=== PATIENT | male | born 1945 | race Caucasian/White ===

== ENCOUNTER 2023-09-07 10:52 | Day surgery (SDC) | payer OTHER ==
[2023-09-06 08:59] LABS: Potassium 3.9 mEq/L (3.5-5.1)
--- NOTE | 2023-09-06 12:27 | EKG ---
Test Date: 2023-09-06 Test Time: 08:19:45 [employer]: GABINO MEASUREMENT RESULTS: Intervals: Rate: 115 VA: QRSD: 140 QT: 358 QTc: 495 [place]: P: VA: QRS: -68 T: 48 INTERPRETIVE STATEMENTS: Atrial fibrillation with rapid ventricular response Right bundle branch block Left anterior fascicular block Bifascicular block Abnormal ECG Compared to ECG 08/23/2017 11:11:30 Right bundle-branch block now present Left anterior fascicular block now present Bifascicular block now present Atrial premature complex(es) no longer present Electronically Signed On 09-06-23 12:26:30 CDT by Kayode Hearn
[2023-09-07] MEDS ORDERED: NA CHLORIDE 0.9% 1,000 ML ONE (11:20)
[2023-09-07] MEDS: CEFAZOLIN SODIUM 1 GM/VIAL ONE ×2 (13:45→13:51)
[2023-09-07] MEDS ORDERED: LIDOCAINE 2% MPF 5 ML VIAL ONE (13:54)
[2023-09-07] MEDS ORDERED: FENTANYL CITR 100 MCG/2 ML ONE (13:54)
[2023-09-07] MEDS ORDERED: propofoL 200 MG/20 ML VIAL IV ONE (13:54)
[2023-09-07] MEDS ORDERED: MIDAZOLAM HCL 2 MG/2 ML INJ ONE (13:54)
[2023-09-07] MEDS: BUPIVACAINE 0.25% PF 10 ML VIAL ONE ×2 (14:07→14:19)
[2023-09-07] MEDS ORDERED: ONDANSETRON 4 MG/2 ML VIAL ONE (14:21)
--- NOTE | 2023-09-07 14:31 | P.OP ---
Preoperative diagnosis: Posterior Neck Skin Cancer Postoperative diagnosis: Posterior Neck Skin Cancer Primary procedure: Wide Local Excision of Posterior Neck Skin Cancer Anesthesia: GETA + Local Estimated blood loss: <5cc Specimen: Skin Ellipse Findings: ~ 0.5cm skin cancer Complications: None Transferred to: Recovery Room Condition: Good
[2023-09-07 16:31] VITALS: BP 122/70; TEMP 97; O2SAT 97
--- NOTE | 2023-09-08 00:47 | OP ---
Date of Procedure: 09/07/2023 Surgeon: Abhay Hendrickson MD, Preoperative Diagnosis: Skin cancer, biopsy proven. Postoperative Diagnosis: Skin cancer, biopsy proven. Procedure: Wide local excision of posterior neck skin cancer. Anesthesia: General endotracheal plus local with 0.25% Marcaine as above, 5 cc. Specimen: Skin ellipse. Findings: 0.5 cm skin cancer. Complication: None. Disposition: Patient transferred to recovery room in good condition. Procedure In Detail: After informed consent was obtained, patient was brought to the operating room, prepped and draped in the usual sterile fashion after adequate anesthesia was achieved. A demarcate d area of posterior neck circumferentially around with a 1 cm margin through an ellipse of skin down around the area of biopsy-proven squamous cell skin cancer. After this was marked appropriately, a 1 5 blade was used to dissect down circumferentially around to close the ellipse of skin. Electrocaute ry was used to dissect down the subcutaneous tissues. I then placed marking sutures, short superior, long with right lateral margin. I then removed the ellipse of skin all the way down to the adipose tissue sent for pathologic examination. The area was copiously irrigated and around the area with el ectrocautery to allow for appropriate closure in a tension-free manner. At this point, after the are a appropriately achieved hemostasis, I then closed the wound with interrupted 2-0 nylon sutures in an interrupted fashion. A sterile dressing was placed over top. The patient tolerated the procedure w ell without evidence of complication and transferred to PACU in good condition. All counts were correct at the end of the case. RASHMI/RADHA Voice ID: [id number] Report ID: [id number]
== END 2023-09-07 16:20 | disposition home or self-care (01) ==
LOC: OR 10:52
PROVIDERS: ATTEND Surgery
PROC: 0HB4XZZ Excision of Neck Skin, External Approach (ICD-10-PCS; principal; 2023-09-07 13:30)
DX: D04.4 Carcinoma in situ of skin of scalp and neck (principal); I10 Essential (primary) hypertension; E78.00 Pure hypercholesterolemia, unspecified; E11.9 Type 2 diabetes mellitus without complications; I48.20 Chronic atrial fibrillation, unspecified; Z79.4 Long term (current) use of insulin
CPT/HCPCS: 93005; 80048; 36415; 82947 ×2; 88305; 11621; J2704; J2001; J3010; J2405; J7030; J0690; J2250

== ENCOUNTER 2024-02-26 21:44 | Emergency (ER) | payer OTHER ==
[2024-02-26] MEDS ORDERED: TDAP (DIPHTH,PERTUSS(ACELL),TET VAC) 0.5 ML VIAL IMVAC ONE (22:20)
[2024-02-26] MEDS ORDERED: LIDOCAINE 1% 20 ML MDV ONE (22:20)
--- NOTE | 2024-02-26 23:49 | ER ---
Nurse's Notes [facility] Name: Rodríguez Burleson Age: 78 yrs Sex: Male : 1945 Arrival Date: 02/26/2024 Time: 21:44 Bed 7 Private MD: Diagnosis: Unspecified injury of head, initial encounter;, Acute forehead laceration, complicated forehead laceration Presentation: 02/25 21:57 Chief complaint: Patient states: mechanical fall while walking dog. laceration to lg3 forehead. bleeding controlled. Care prior to arrival: IV initiated. 18 GA, in the right forearm. Mechanism of Injury: Fall from standing position. approximately 5 feet. Trauma event details: Injury occurred in the [facility], Injury occurred: on a street or highway. Injury occurred: February 26, 2024 Injury occurred at: 21:00. 21:57 Acuity: [place] 3 lg3 21:57 Method Of Arrival: EMS: [facility] lg3 22:12 Coronavirus screen: Client denies travel out of the [place] in the last 14 days. At this lg3 time, the client does not indicate any symptoms associated with coronavirus-19. Ebola Screen: No symptoms or risks identified at this time. Initial Sepsis Screen: Does the patient meet any 2 criteria? No. Patient's initial sepsis screen is negative. Does the patient have a suspected source of infection? No. Patient's initial sepsis screen is negative. Risk Assessment: Do you want to hurt yourself or someone else? Patient reports no desire to harm self or others. Onset of symptoms was February 26, 2024. Trauma Activation: Alert Physician: ED Physician; Name: Baljit; Notified At: ; Arrived At: Physician: General Surgeon; Name: ; Notified At: ; Arrived At: Physician: Radiology; Name: ; Notified At: ; Arrived At: Physician: Respiratory; Name: ; Notified At: ; Arrived At: Physician: Lab; Name: ; Notified At: ; Arrived At: Historical: - Allergies: 22:12 No Known Allergies; lg3 - Home Meds: 22:12 unknown blood thinner [Active]; lg3 - PMHx: 22:12 Hypertensive disorder; Diabetes mellitus; lg3 - PSHx: 22:12 left knee replacement; lg3 - Immunization history: Last tetanus immunization: - up to date. - Infectious Disease History:: Denies. - Social history:: Smoking status: Patient denies any tobacco usage or history of. Patient/guardian denies using alcohol, street drugs. - Family history:: not pertinent. Screenin:57 Abuse screen: Denies threats or abuse. Denies injuries from another. Nutritional lg3 screening: No deficits noted. Tuberculosis screening: No symptoms or risk factors identified. Fall risk At risk due to prior history of falls. 22:14 [facility] ED Fall Risk Assessment (Adult) History of falling in the last 3 months, lg3 including since admission Yes- single mechanical fall (1 pt) Confusion or Disorientation No (0 pts) Intoxicated or Sedated No (0 pts) Impaired Gait No (0 pts) Mobility Assist Device Used No (0 pt) Altered Elimination No (0 pt) Score/Fall Risk Level 0 - 2 = Low Risk Oriented to surroundings, Maintained a safe environment, Educated pt \T\ family on fall prevention, incl call for assistance when getting out of bed, Assessed \T\ reinforced patient's understanding of fall precautions, Provided non-skid footwear. Primary Survey: 21:57 NO uncontrolled hemorrhage observed. A: The client is awake and alert. The airway is lg3 patent. The client is alert. Breathing/Chest: Spontaneous respiratory effort, equal unlabored respirations, breath sounds clear bilaterally, regular pattern, symmetrical chest rise and fall. Circulation: No external hemorrhage present. Regular and strong central pulse, skin warm/dry/normal color. Disability Pupils are equal, round, reactive to light and accommodation. Client is alert. Client responds to verbal stimuli. Exposure/Environment: All clothing and personal items were removed. Forensic evidence collection is not deemed to be indicated at this time. Items placed in patient belonging bag. 22:13 Reassessment Breathing: Spontaneous respiratory effort, equal unlabored respirations, lg3 breath sounds clear bilaterally, regular pattern with symmetrical chest rise and fall. Circulation: No external hemorrhage noted. Regular and strong central pulse, skin warm/dry/normal color. Disability: Pupils Pupils are equal, round, reactive to light and accomodation. Alert Verbal stimuli. Assessment: 21:57 General: Appears in no apparent distress. comfortable, Behavior is calm, cooperative. lg3 Pain: Complains of pain in forehead Pain does not radiate. Pain currently is 4 out of 10 on a pain scale. Neuro: No deficits noted. [place] Agitation-Sedation Scale (RASS): 0 - Alert and Calm Level of Consciousness is awake, alert, obeys commands, Oriented to person, place, time, situation. EENT: No deficits noted. No signs and/or symptoms were reported regarding the EENT system. Cardiovascular: No deficits noted. Denies chest pain, shortness of breath, Heart tones S1 S2 present Capillary refill < 3 seconds Clubbing of nail beds is absent JVD is absent Patient's skin is warm and dry. Respiratory: No deficits noted. Airway is patent Respiratory effort is even, unlabored, Respiratory pattern is regular, symmetrical. GI: No deficits noted. No signs and/or symptoms were reported involving the gastrointestinal system. Abdomen is round non-distended. : No deficits noted. No signs and/or symptoms were reported regarding the genitourinary system. Derm: Skin is intact, is thin, Skin is dry, Skin is normal, Skin temperature is warm Wound noted forehead. Musculoskeletal: No deficits noted. No signs and/or symptoms reported regarding the musculoskeletal system. Circulation, motion, and sensation intact. Range of motion: intact in all extremities. Vital Signs: 21:57 BP 155 / 84; Pulse 86; Resp 17 S; Temp 98.1(O); Pulse Ox 99% on R/A; Weight 79.38 kg lg3 (R); Height 6 ft. 0 in. (R); Pain 4/10; 23:58 BP 185 / 99; Pulse 88; Resp 16 S; Temp 97.8(TE); Pulse Ox 100% on R/A; lg3 21:57 Body Mass Index 23.73 (79.38 kg, 182.88 cm) lg3 21:57 Pain Scale: Adult lg3 [place] Coma Score: 21:57 Eye Response: spontaneous(4). Motor Response: obeys commands(6). Verbal Response: lg3 oriented(5). Total: 15. 23:44 Eye Response: spontaneous(4). Motor Response: obeys commands(6). Verbal Response: sp4 oriented(5). Total: 15. Trauma Score (Adult): 21:57 Eye Response: spontaneous(1); Verbal Response: oriented(1); Motor Response: obeys lg3 commands(2); Systolic BP: > 89 mm Hg(4); Respiratory Rate: 10 to 29 per min(4); [place] Score: 15; Trauma Score: 12 ED Course: 21:45 Patient arrived in ED. jj6 21:51 Jed Smiley MD is Attending Physician. sp4 21:57 Mony Grullon RN is Primary Nurse. lg3 21:57 Patient has correct armband on for positive identification. Placed in gown. Bed in low lg3 position. Call light in reach. Side rails up X 1. Patient maintains SpO2 saturation greater than 95% on room air. Family accompanied patient. Client placed on continuous cardiac and pulse oximetry monitoring. NIBP monitoring applied. court recording monitor on. 21:57 Maintain EMS IV. Dressing intact. Good blood return noted. Site clean \T\ dry. Gauge \T\ lg 3 site: 15 RFA. Patient maintains SpO2 saturation greater than 95% on room air. Thermoregulation: warm blanket given to patient. 21:59 Triage completed. lg3 22:12 Arm band placed on right wrist. lg3 22:52 CT Head Brain wo Cont In Process Unspecified. EDMS 02/26 00:31 Assist provider with laceration repair on forehead using sutures. Set up tray. lg3 Performed by Jed Smiley MD Dressed with Kerlix, Neosporin, Patient tolerated well. IV discontinued, intact, bleeding controlled, No redness/swelling at site. Pressure dressing applied. Administered Medications: 02/25 22:29 Drug: Boostrix Tdap IM 0.5 ml IM once; as a single dose Route: IM; Site: right deltoid; lg3 04 00:34 Follow up: Response: (VIS) Vaccine information sheet provided today. Questions and/or lg3 concerns addressed. VIS edition date: Jul 01, 2021.; No adverse reaction 00:23 Drug: Acetaminophen PO 1000 mg PO once Route: PO; vc1 00:33 Follow up: Response: No adverse reaction lg3 00:23 Drug: Ibuprofen PO 600 mg PO once Route: PO; vc1 00:33 Follow up: Response: No adverse reaction lg3 00:23 Drug: cloNIDine PO 0.1 mg PO once Route: PO; vc1 00:33 Follow up: Response: No adverse reaction lg3 00:23 Drug: Zwgbwydx-Iycvjqyjfr-Ppehxtrxj Topical Ointment 1 application Topical once Route: vc1 Topical; Site: affected area; 00:33 Follow up: Response: No adverse reaction lg3 00:34 Drug: Lidocaine Infiltration (1 %) 20 ml 20 ml Infiltration once; to bedside Volume: 20 lg3 ml; Route: Infiltration; 00:34 Follow up: Response: No adverse reaction lg3 Medication: 02/25 22:30 Vaccine Information Statement (VIS) provided today. Questions and/or concerns lg3 addressed. VIS edition date: July 01, 2022. Point of Care Testing: Blood Glucose: 21:57 Blood Glucose: 248 mg/dL; lg3 Ranges: Outcome: 23:48 Discharge ordered by . sp4 04 00:31 Discharged to home via wheelchair, with family, lg3 Condition: stable Discharge instructions given to patient, Instructed on discharge instructions, follow up and referral plans. wound care, Demonstrated understanding of instructions, follow-up care, wound care, 00:33 Patient's length of stay was not longer than 2 hours. lg3 00:34 Patient left the ED. lg3 Signatures: Dispatcher [employer] EDMS Mony Grullon, RN RN lg3 Lexii Lubinj6 Rebeca Damon RN RN vc1 Jed Smiley MD MD sp4 Elvin Calzada Corrections: (The following items were deleted from the chart) 02/25 22:13 22:12 Home Meds: Unable to obtain; lg3 lg3 02/26 00:05 04 23:58 BP 199 / 117 Sitting Auto L Arm Regular; ty ty 02/26 00:31 04 23:58 BP 185 / 99 Sitting Auto L Arm Regular; ty lg3
--- NOTE | 2024-02-26 23:49 | EDPHYS ---
Physician Documentation [facility] Name: Rodríguez Burleson Age: 78 yrs Sex: Male : 1945 Arrival Date: 02/26/2024 Time: 21:44 Bed 7 Private MD: ED Physician Jed Smiley HPI: 02/25 21:51 This 78 yrs old Male presents to ER via Unassigned with complaints of Fall sp4 Injury. 23:43 78-year-old male presents with acute fall onto the pavement forehead contusion sp4 laceration and hematoma. . 23:44 Patient brought in by EMS with jagged laceration to the forehead without active sp4 bleeding. Patient reports he is on blood pressure medication and also some blood thinner as well. He is not sure what blood thinner he takes. . Historical: - Allergies: 22:12 No Known Allergies; lg3 - Home Meds: 22:12 unknown blood thinner [Active]; lg3 - PMHx: 22:12 Hypertensive disorder; Diabetes mellitus; lg3 - PSHx: 22:12 left knee replacement; lg3 - Immunization history: Last tetanus immunization: - up to date. - Infectious Disease History:: Denies. - Social history:: Smoking status: Patient denies any tobacco usage or history of. Patient/guardian denies using alcohol, street drugs. - Family history:: not pertinent. ROS: 23:44 Constitutional: Negative for fever, chills, and weight loss, positive head injury sp4 positive forehead contusion laceration and road rash 23:44 All other systems are negative, Exam: 23:44 Constitutional: This is a well developed, well nourished patient who is awake, alert, sp4 and in no acute distress. Head/Face: Normocephalic, positive mid forehead contusion with skin shearing injury consistent with road rash also jagged laceration that is T-shaped. Eyes: Pupils equal round and reactive to light, extra-ocular motions intact. Lids and lashes normal. Conjunctiva and sclera are not injected. Cornea within normal limits. Periorbital areas with no swelling, redness, or edema. ENT: Nares patent. No nasal discharge, no septal abnormalities noted. Tympanic membranes are normal and external auditory canals are clear. Oropharynx with no redness, swelling, or masses, exudates, or evidence of obstruction, uvula midline. Mucous membranes moist. Neck: Trachea midline, no thyromegaly or masses palpated, and no cervical lymphadenopathy. Supple, full range of motion without nuchal rigidity, or vertebral point tenderness. Chest/axilla: Normal chest wall appearance and motion. Nontender with no deformity. No lesions are appreciated. Cardiovascular: Regular rate and rhythm with a normal S1 and S2. No gallops, murmurs, or rubs. Normal PMI, no JVD. No pulse deficits. Respiratory: Lungs have equal breath sounds bilaterally, clear to auscultation and percussion. No rales, rhonchi or wheezes noted. No increased work of breathing, no retractions or nasal flaring. Abdomen/GI: Soft, with normal bowel sounds. No distension or tympany. No guarding or rebound. No evidence of tenderness throughout. Back: No spinal tenderness. No costovertebral tenderness. Skin: Warm, dry with normal turgor. Normal color with no rashes, no lesions, and no evidence of cellulitis. MS/ Extremity: Pulses equal, no cyanosis. Neurovascular intact. Full, normal range of motion. Neuro: Awake and alert, GCS 15, oriented to person, place, time, and situation. Cranial nerves II-XII grossly intact. Motor strength 5/5 in all extremities. Sensory grossly intact. Psych: Awake, alert, with orientation to person, place and time. Behavior, mood, and affect are within normal limits Vital Signs: 21:57 BP 155 / 84; Pulse 86; Resp 17 S; Temp 98.1(O); Pulse Ox 99% on R/A; Weight 79.38 kg lg3 (R); Height 6 ft. 0 in. (R); Pain 4/10; 23:58 BP 185 / 99; Pulse 88; Resp 16 S; Temp 97.8(TE); Pulse Ox 100% on R/A; lg3 21:57 Body Mass Index 23.73 (79.38 kg, 182.88 cm) lg3 21:57 Pain Scale: Adult lg3 [place] Coma Score: 21:57 Eye Response: spontaneous(4). Motor Response: obeys commands(6). Verbal Response: lg3 oriented(5). Total: 15. 23:44 Eye Response: spontaneous(4). Motor Response: obeys commands(6). Verbal Response: sp4 oriented(5). Total: 15. Trauma Score (Adult): 21:57 Eye Response: spontaneous(1); Verbal Response: oriented(1); Motor Response: obeys lg3 commands(2); Systolic BP: > 89 mm Hg(4); Respiratory Rate: 10 to 29 per min(4); [place] Score: 15; Trauma Score: 12 Laceration: 23:44 Wound Repair of 4cm ( 1.6in ) subcutaneous laceration to forehead. Irregularly shaped.. sp4 Skin/tissue flap noted.. Moderate contamination.. Distal neuro/vascular/tendon intact. Anesthesia: Wound infiltrated with 20 mls of 1% lidocaine. Wound prep: Moderate cleansing by me, Copious irrigation. Skin closed with 15 5-0 Prolene using interrupted sutures and sterile technique. Dressed with Neosporin, 4x4's, Kerlix. Patient tolerated well. MDM: 21:58 Patient medically screened. sp4 23:42 ED course: CLINICAL HISTORY: fall, laceration to forehead COMPARISON: None. TECHNIQUE: sp4 CT HEAD WITHOUT IV CONTRAST on 02/26/2024 9:53 PM CDT This exam was performed according to our departmental dose-optimization program, which includes automated exposure control, adjustment of the mA and/or kV according to patient size and/or use of iterative reconstruction technique. FINDINGS: There is no acute hemorrhage, mass effect or midline shift. Tolbert-white differentiation is preserved. There is no hydrocephalus. There is no significant volume loss for age. There is a small to moderate right frontal scalp contusion. The calvarium is intact. Orbits and globes are unremarkable. The paranasal sinuses are clear. Mastoid air cells are clear. IMPRESSION: No acute intracranial findings.. 23:44 Differential diagnosis: abrasion, closed head injury, contusion, fracture, laceration, sp4 multiple trauma, sprain, strain. Data reviewed: vital signs, nurses notes, EMS record, radiologic studies, CT scan. ED course: CT head is unremarkable. Patient is stable for discharge home. Advised suture removal and after 20 days. 02/25 22:04 Order name: Glucose, Ancillary Testing; Complete Time: 00:19 EDMS 02/25 21:53 Order name: CT Head Brain wo Cont sp4 02/25 21:53 Order name: Dressing - Wound; Complete Time: 22:25 sp4 02/25 21:53 Order name: Gloves, Sterile; Complete Time: 22:25 sp4 02/25 21:53 Order name: Setup Suture Tray; Complete Time: 22:25 sp4 Administered Medications: 22:29 Drug: Boostrix Tdap IM 0.5 ml IM once; as a single dose Route: IM; Site: right deltoid; lg3 02/26 00:34 Follow up: Response: (VIS) Vaccine information sheet provided today. Questions and/or lg3 concerns addressed. VIS edition date: Jul 01, 2021.; No adverse reaction 00:23 Drug: Acetaminophen PO 1000 mg PO once Route: PO; vc1 00:33 Follow up: Response: No adverse reaction lg3 00:23 Drug: Ibuprofen PO 600 mg PO once Route: PO; vc1 00:33 Follow up: Response: No adverse reaction lg3 00:23 Drug: cloNIDine PO 0.1 mg PO once Route: PO; vc1 00:33 Follow up: Response: No adverse reaction lg3 00:23 Drug: Jhemkepz-Tuymyutcqw-Tqmateafq Topical Ointment 1 application Topical once Route: vc1 Topical; Site: affected area; 00:33 Follow up: Response: No adverse reaction lg3 00:34 Drug: Lidocaine Infiltration (1 %) 20 ml 20 ml Infiltration once; to bedside Volume: 20 lg3 ml; Route: Infiltration; 00:34 Follow up: Response: No adverse reaction lg3 Point of Care Testing: Blood Glucose: 02/25 21:57 Blood Glucose: 248 mg/dL; lg3 Ranges: Critical Glucose Levels:Adult <50 mg/dl or >400 mg/dl <40 mg/dl or >180 mg/dl Disposition Summary: 02/26/24 23:48 Discharge Ordered Problem: new sp4 Symptoms: have improved sp4 Condition: Stable sp4 Diagnosis - Unspecified injury of head, initial encounter sp4 - , Acute forehead laceration, complicated forehead laceration sp4 Followup: sp4 - With: Private Physician - When: after 20 days - Reason: Discharge Instructions: - Discharge Summary Sheet sp4 - Facial Laceration, [id number] sp4 Forms: - Patient Portal Instructions sp4 Signatures: Dispatcher [employer] Mony Leija RN RN lg3 Rebeca Damon RN RN vc1 Jed Smiley MD MD sp4 Corrections: (The following items were deleted from the chart) 2153 21:53 Head Brain Wo [id number] ordered. EDMS EDMS 22:13 22:12 Home Meds: Unable to obtain; lg3 lg3
[2024-02-27] MEDS ORDERED: ACETAMINOPHEN 500 MG TAB ONE (00:09)
[2024-02-27] MEDS ORDERED: IBUPROFEN 200 MG TAB PO ONE (00:09)
[2024-02-27] MEDS ORDERED: cloNIDine HCL 0.1 MG TAB ONE (00:10)
[2024-02-27] MEDS ORDERED: IBUPROFEN 400 MG TAB ONE (00:10)
[2024-02-27 01:10] VITALS: BP 185/99; TEMP 97.8; O2SAT 100
--- NOTE | 2024-02-27 14:05 | RAD REPORT ---
EXAM DESCRIPTION: Head Brain WO Contrast CLINICAL HISTORY: Fall, laceration to forehead COMPARISON: None. TECHNIQUE: CT HEAD WITHOUT IV CONTRAST on 02/26/2024 9:53 PM CDT This exam was performed according to our departmental dose-optimization program, which includes autom ated exposure control, adjustment of the mA and/or kV according to patient size and/or use of iterati ve reconstruction technique. FINDINGS: There is no acute hemorrhage, mass effect or midline shift. Tolbert-white differentiation is preserved. There is no hydrocephalus. There is no significant volume loss for age. There is a small t o moderate right frontal scalp contusion. The calvarium is intact. Orbits and globes are unremarkable. The paranasal sinuses are clear. Mastoid air cells are clear. IMPRESSION: No acute intracranial findings. Electronically signed by: Joe Armas MD 02/26/2024 11:22 PM CDT Due to temporary technical issues with the PACS/Fluency reporting system, reports are being signed by the in house radiologist without review as a courtesy to ensure prompt reporting. The interpreting r adiologist is fully responsible for the content of the report.
== END 2024-02-27 00:34 | disposition home or self-care (01) ==
LOC: ER 21:44
PROC: 0HQ1XZZ Repair Face Skin, External Approach (ICD-10-PCS; principal; 2024-02-27)
DX: S01.81XA Laceration without foreign body of other part of head, initial encounter (principal); E11.9 Type 2 diabetes mellitus without complications; I10 Essential (primary) hypertension
CPT/HCPCS: 82947; 70450; 12013; J2001

== ENCOUNTER 2025-03-20 12:49 | Inpatient (IN) | payer OTHER ==
[2025-03-20] MEDS ORDERED: ALBUTEROL 2.5 MG/3 ML NEB SOL IH PRN (13:45)
[2025-03-20] MEDS ORDERED: DIPHENHYDRAMINE 25 MG TAB/CAP PO PRN (14:00)
[2025-03-20] MEDS ORDERED: LOPERAMIDE HCL 2 MG CAPSULE PO PRN (14:00)
[2025-03-20] MEDS ORDERED: ONDANSETRON 4 MG (ODT) TAB PO PRN (14:00)
[2025-03-20] MEDS ORDERED: POLYETHYL GLY 3350 17 GM/DOSE PO PRN (14:00)
[2025-03-20] MEDS ORDERED: ONDANSETRON 4 MG/2 ML VIAL IV PRN (14:00)
[2025-03-20] MEDS ORDERED: ACETAMINOPHEN 325 MG TABLET PO PRN (14:00)
[2025-03-20] MEDS ORDERED: GLUCAGON 1 MG/VIAL IM PRN (14:09)
[2025-03-20] MEDS ORDERED: D10W 125 ML IV PRN (14:09)
[2025-03-20 14:11] LABS: Absolute Basophils 0.1 K/uL (0-0.5); Absolute Eosinophils 0.1 K/uL (0-0.5); Absolute Lymphocytes (CBC) 0.6 K/uL (0.7-4.9); Absolute Monocytes 0.9 K/uL (0.1-1.3); Absolute Neutrophil 5.6 K/uL (1.8-8.0); Basophils % 0.9 % (0-1.3); Eosinophils % 1.8 % (0-4.4); Hematocrit 35.5 % (39.6-49.0); Lymphocytes % 8.7 % (15.3-44.8); MCH 27.9 pg (27.0-35.0); MCHC 33.7 g/dL (32.0-36.0); MCV 82.6 fL (80-100); MPV 7.8 fL (7.6-11.3); Neutrophils % 76.6 % (41.7-73.7); Platelets 218 thou/uL (152-406); RBC Red Blood Cell Count 4.29 M/uL (4.33-5.43); Red Cell Distribution Width 17.1 % (12.1-15.2)
[2025-03-20 14:27] LABS: PT Prothrombin Time 12.2 SECONDS (10-13.0); PTT, Activated Partial Thromb 32.5 SECONDS (27.2-37.4); Protime INR 1.07
[2025-03-20 14:56] LABS: Albumin 3.7 g/dL (3.4-5.0); Albumin/Globulin Ratio 1.1 (1.1-1.8); Anion Gap 9.3 mEq/L (5.0-15.0); Bilirubin Direct 0.3 mg/dL (0-0.2); Bilirubin Indirect, Calculated 0.6 mg/dL (0.2-0.8); Bilirubin Total 0.9 mg/dL (0.2-1.0); Globulin 3.4 g/dL (2.3-3.5); Magnesium 2.7 mg/dL (1.6-2.4); Phosphorus 3.2 mg/dL (2.5-4.9); Potassium 4.3 mEq/L (3.5-5.1); Protein, Total 7.1 g/dL (6.4-8.2)
[2025-03-20 15:07] LABS: Thyroid Stimulating Hormone 4.68 uIU/mL (0.358-3.740)
[2025-03-20] MEDS: INSULIN REGULAR (HUMAN) 100 UNIT/ML SQ SCH (16:30)
[2025-03-20] MEDS: FUROSEMIDE 100 MG in NA CHLORIDE 0.9% 90 ML IV SCH (17:14)
[2025-03-20 17:58] LABS: Specific Gravity 1.028 (1.005-1.030); Sqamous Epithelial None Seen /HPF (None Seen); Urine Bacteria <20 /HPF (<20); Urine Bilirubin NEGATIVE (Negative); Urine Blood Negative (Negative); Urine Clarity Extremely Turbid (Clear); Urine Color Yellow (Yellow); Urine Crystals Unidentified Few /HPF (None Seen); Urine Culture Reflex Order REFLEXED; Urine Glucose NEGATIVE (Negative); Urine Ketones NEGATIVE (Negative); Urine Microscopic Reflex YN ORDER UMIC; Urine Nitrite NEGATIVE (Negative); Urine Protein NEGATIVE (Negative); Urine RBC <5 /HPF (None Seen); Urine Urobilinogen Normal (Normal); Urine Yeast (Budding) Trace /HPF (None Seen); Urine pH 7.5 (5.0-7.0)
[2025-03-20 18:06] LABS: MA/CREAT RATIO 17.4 (< 30.0); UR MICROALBUMIN 2.6 mg/dL (< 1.9)
--- NOTE | 2025-03-20 18:36 | RAD REPORT ---
EXAMINATION: CT Abdomen Pelvis W Contrast CLINICAL INDICATION: Male, 79 years old. Direct Admission right lower extremity swelling, shortness of breath TECHNIQUE: CT abdomen and pelvis was performed, after the administration of IV contrast, as per [facility] protocol. Axial, sagittal and coronal reconstructions were obtained. One or more of the following dose reduction techniques were used: Automated exposure control, adjustment of the mA and k V according to patient size, and iterative reconstruction. Unless otherwise specified, incidental findings do not require dedicated imaging follow-up. COMPARISON: No prior exam. FINDINGS: LOWER CHEST: Separately evaluated on CT chest of the same day. LIVER: Normal in size and contour. No focal lesion. BILIARY SYSTEM: Decompressed gallbladder limiting evaluation. No suspicious abnormalities. SPLEEN: Normal size. No focal lesion. PANCREAS: No mass, ductal dilation, or lin-pancreatic fluid. ADRENALS: Normal; no mass. KIDNEYS: Normal size and contour. No hydronephrosis. URINARY BLADDER: Unremarkable. GASTROINTESTINAL TRACT: No evidence of free air, significant intra-abdominal free fluid, bowel obstru ction or abscess. APPENDIX: Normal appendix. LYMPH NODES: No lymphadenopathy. MUSCULOSKELETAL: No acute osseous abnormality. Ankylosis across the disc space, with advanced osseous remodeling along the posterior elements at L4-5 level, contributing to at least moderate encroachment upon the canal. This is not well evaluated. ADDITIONAL FINDINGS: Right hip periarticular soft tissue swelling, with thickening at the level of th e intertrochanter. IMPRESSION: No acute or concerning abnormalities seen within the abdomen or pelvis. Right hip periarticular soft tissue swelling. If there is concern for soft tissue injury or septic ar thritis, additional evaluation by MRI would be more helpful. Please correlate clinically. Degenerative lumbar spine changes most pronounced at L4-5 level. If there is clinical concern for rad iculopathy, MRI lumbar spine may be warranted for further evaluation.
--- NOTE | 2025-03-20 18:47 | RAD REPORT ---
EXAM: CT Chest For Pe Angio TECHNIQUE: CT angiogram of the chest was performed following intravenous contrast administration, inc luding sagittal and coronal as well as maximum intensity projection reformats. One or more of the following dose reduction techniques were used: Automated exposure control, adjustment of the mA and k V according to patient size, and iterative reconstruction. Unless otherwise specified, incidental findings do not require dedicated imaging follow-up. INDICATION: Shortness of breath. Concern for PE Direct Admission N COMPARISON: Chest radiograph 08/15/2022. FINDINGS: LINES/TUBES: None. PULMONARY ARTERIES: Main pulmonary arteries are normal in caliber. No filling defects within the pul monary arteries to suggest pulmonary embolus. LUNGS AND AIRWAYS: The lungs and central airways are normal without focal abnormality except for depe ndent platelike atelectatic changes. PLEURA: Bilateral layering small effusions. No Pneumothorax. HEART AND MEDIASTINUM: Left atrial appendage occlusion device in place. The visualized thyroid gland is normal. No mediastinal, hilar, or axillary lymphadenopathy. Heart is unremarkable. No pericardial effusion. SOFT TISSUES AND BONES: No acute osseous abnormality. No significant soft tissue finding. UPPER ABDOMEN: Separately evaluated on CT abdomen and pelvis of the same day.. IMPRESSION: No evidence of acute central pulmonary emboli. Bilateral layering small pleural effusions.
[2025-03-20] MEDS: LEVALBUTEROL 1.25 MG/3 ML NEB IH SCH (19:00)
[2025-03-20] MEDS: IPRATROPIUM BROM 0.5MG/2.5ML IH SCH (19:00)
[2025-03-20] MEDS: NACHLORIDE 0.45% 1,000 ML IV SCH (20:38)
[2025-03-20 22:59] VITALS: O2SAT 94
[2025-03-21] MEDS: AMLODIPINE 5 MG TAB PO ONE (00:17)
[2025-03-21 08:18] LABS: Absolute Basophils 0.1 K/uL (0-0.5); Absolute Eosinophils 0.2 K/uL (0-0.5); Absolute Lymphocytes (CBC) 0.7 K/uL (0.7-4.9); Absolute Monocytes 1.2 K/uL (0.1-1.3); Absolute Neutrophil 6.5 K/uL (1.8-8.0); Basophils % 0.8 % (0-1.3); Eosinophils % 1.9 % (0-4.4); Lymphocytes % 8.1 % (15.3-44.8); MCH 27.5 pg (27.0-35.0); MCHC 33.3 g/dL (32.0-36.0); MCV 82.4 fL (80-100); MPV 8.2 fL (7.6-11.3); Monocytes % 13.6 % (3.3-12.3); Neutrophils % 75.6 % (41.7-73.7); Nucleated Red Blood Cells % 0.1 % (0-0); Platelets 238 thou/uL (152-406); RBC Red Blood Cell Count 4.73 M/uL (4.33-5.43); Red Cell Distribution Width 17.1 % (12.1-15.2)
[2025-03-21 08:31] LABS: Anion Gap 9.3 mEq/L (5.0-15.0); Magnesium 2.5 mg/dL (1.6-2.4); Potassium 3.3 mEq/L (3.5-5.1)
[2025-03-21] MEDS: SACUBITRIL/VALSARTAN 24/26 MG TAB PO SCH (10:00)
[2025-03-21] MEDS: carvediloL 6.25 MG TAB PO SCH (10:00)
[2025-03-21] MEDS: AMLODIPINE 2.5 MG TAB PO SCH (10:00)
[2025-03-21] MEDS: ENOXAPARIN 40 MG/0.4 ML SQ SCH (10:00)
[2025-03-21] MEDS: INSULIN LISPRO 100 UNIT/1 ML SQ SCH (13:00)
[2025-03-21] MEDS ORDERED: HOME MED 1 EA UNK (Insulin Aspart [Novolog Flexpen] 100 UNIT/ML Insuln.Pen) SQ SCH (14:00)
[2025-03-21 14:13] VITALS: BMI 3573.6
--- NOTE | 2025-03-21 17:10 | P.PN ---
Subjective Date of Service: 03/21/25 Chief Complaint: BREATHES BETTER Subjective: Improving HE IS FEELING BETTER, STILL GETS SHORT OF BREATH WHEN LAYING PER DAUGHTER. Review of Systems 10-point ROS is otherwise unremarkable General: Weakness Respiratory: Shortness of Breath Physical Examination - Vital Signs Temperature: 98.1 F Blood Pressure: 149/68 Pulse: 64 Respirations: 14 Pulse Ox (%): 97 - Physical Exam General: Oriented x3, Mild distress HEENT: Atraumatic, PERRLA, EOMI Neck: Supple, JVD not distended (THIS IS BETTER THAN YESTERDAY.) Respiratory: Clear to auscultation bilaterally, Normal air movement Cardiovascular: Regular rate/rhythm, Normal S1 S2, Edema (IMPROVED [place]ST[place] POS.) Gastrointestinal: Normal bowel sounds, No tenderness Musculoskeletal: No tenderness Integumentary: No rashes Neurological: Normal speech, Normal tone, Normal affect Lymphatics: No axilla or inguinal lymphadenopathy - Studies Laboratory Data (last 24 hrs) 03/21/25 03/21/25 07:23 07:23 WBC 8.70 Hgb 13.0 L D Hct 39.0 L Plt Count 238 Sodium 139 Potassium 3.3 L D BUN 20 H Creatinine 1.13 Glucose 142 H Magnesium 2.5 H Medications List Reviewed: Yes Assessment And Plan - Current Problems (Diagnosis) (1) Acute on chronic diastolic heart failure with preserved ejection fraction Current Visit: Yes Status: Acute Plan: HE IS ON LASIX DRIP KCL PO I CHANGED LOSARTAN TO ENTRESTO CHANGED TOPROL TO COREG CONTINUE AMIODARONE FOR HISTORY H O A FIB. DR FLYNN HAS BEEN MANAGING. (2) Coronary artery disease due to type 2 diabetes mellitus Current Visit: Yes Status: Chronic (3) Hypokalemia Current Visit: Yes Status: Acute Plan: REPLACE WITH K DAILY LAB.
[2025-03-21] MEDS ORDERED: INSULN SQ SCH (21:00)
[2025-03-21] MEDS: AMIODARONE HCL 200 MG TAB PO SCH (21:00)
[2025-03-21] MEDS ORDERED: HOME MED 1 EA UNK (Potassium Chloride [Potassium Chloride] 10 MEQ Capsule.Er) PO SCH (21:00)
[2025-03-21] MEDS ORDERED: [UNRECOGNIZED DRUG - OTHER] SQ SCH (21:00)
[2025-03-21] MEDS: INSULIN GLARGINE 100 UNIT/ML SQ SCH (21:00)
[2025-03-21] MEDS: INSULIN ASPART 100 UNIT/ML SQ SCH (21:00)
[2025-03-21] MEDS ORDERED: INSULIN GLARGINE YFGN 100 UNIT/ML SQ SCH (21:00)
[2025-03-21] MEDS: INSULIN SQ SCH (21:00)
[2025-03-21] MEDS: TAMSULOSIN 0.4 MG SR CAP PO SCH (21:00)
[2025-03-21] MEDS ORDERED: HOME MED 1 EA UNK (Memantine Hcl [Memantine Hcl] 5 MG Tablet) PO SCH (21:00)
[2025-03-21] MEDS: MONTELUKAST 10 MG TAB PO SCH (21:00)
[2025-03-21] MEDS: MEMANTINE HCL 10 MG TABLET PO SCH (21:41)
[2025-03-21] MEDS: ATORVASTATIN 40 MG TAB PO SCH (21:42)
[2025-03-21] MEDS: POTASSIUM CL SA 10 MEQ TAB PO SCH (21:42)
[2025-03-21] MEDS: ASPIRIN 81 MG CHEWABLE TABLET PO SCH (21:43)
[2025-03-22] MEDS ORDERED: FLU (Fluarix Triv) TS24-25(6MOS UP)/PF 45 MCG/0.5 ML Syringe IM ONE (07:45)
[2025-03-22 08:18] LABS: Absolute Basophils 0.1 K/uL (0-0.5); Absolute Eosinophils 0.2 K/uL (0-0.5); Absolute Lymphocytes (CBC) 0.7 K/uL (0.7-4.9); Absolute Monocytes 1.2 K/uL (0.1-1.3); Absolute Neutrophil 5.9 K/uL (1.8-8.0); Basophils % 1.1 % (0-1.3); Eosinophils % 2.1 % (0-4.4); Hematocrit 41.5 % (39.6-49.0); Hemoglobin 13.9 g/dL (13.6-17.9); Lymphocytes % 9.3 % (15.3-44.8); MCH 27.4 pg (27.0-35.0); MCHC 33.4 g/dL (32.0-36.0); MCV 81.9 fL (80-100); Monocytes % 14.4 % (3.3-12.3); Neutrophils % 73.1 % (41.7-73.7); Platelets 254 thou/uL (152-406); RBC Red Blood Cell Count 5.06 M/uL (4.33-5.43); Red Cell Distribution Width 16.9 % (12.1-15.2)
[2025-03-22 08:45] LABS: Magnesium 2.3 mg/dL (1.6-2.4)
[2025-03-22] MEDS: ISOSORBIDE MONO SR 30 MG TAB PO SCH (08:57)
[2025-03-22] MEDS: MAGNESIUM OXIDE 400 MG TAB PO SCH (08:57)
[2025-03-22] MEDS: ALOGLIPTIN BENZOATE 12.5 MG TABLET PO SCH (08:58)
[2025-03-22] MEDS ORDERED: HOME MED 1 EA UNK (Levothyroxine Sodium [Levothyroxine Sodium] 150 MCG Tablet) PO SCH (09:00)
[2025-03-22] MEDS: LEVOTHYROXINE SOD 0.075 MG TAB PO SCH (09:10)
[2025-03-22] MEDS ORDERED: FUROSEMIDE 100 MG in NA CHLORIDE 0.9% 90 ML IV SCH (20:31)
--- NOTE | 2025-03-22 20:34 | P.PN ---
Subjective Date of Service: 03/22/25 Chief Complaint: BREATHES BETTER Subjective: Improving HE IS FEELING BETTER, STILL GETS SHORT OF BREATH WHEN LAYING PER DAUGHTER. HE IS A LOT BETTER. HE DENIES ANY PAIN. LEGS ARE NOT SWELLING ANY LONGER. Review of Systems 10-point ROS is otherwise unremarkable General: Weakness Physical Examination - Vital Signs Temperature: 97.5 F Blood Pressure: 114/59 Pulse: 72 Respirations: 16 Pulse Ox (%): 92 - Physical Exam General: In no apparent distress, Oriented x3 HEENT: Atraumatic, PERRLA, EOMI Neck: Supple, JVD not distended Respiratory: Clear to auscultation bilaterally, Normal air movement Cardiovascular: Regular rate/rhythm, Normal S1 S2 Gastrointestinal: Normal bowel sounds, No tenderness Musculoskeletal: No tenderness Integumentary: No rashes Neurological: Normal speech, Normal tone, Normal affect Lymphatics: No axilla or inguinal lymphadenopathy - Studies Laboratory Data (last 24 hrs) 03/22/25 03/22/25 07:10 07:10 WBC 8.10 Hgb 13.9 Hct 41.5 Plt Count 254 Sodium 139 Potassium 3.0 L BUN 20 H Creatinine 1.13 Glucose 162 H Magnesium 2.3 Medications List Reviewed: Yes Assessment And Plan - Current Problems (Diagnosis) (1) Acute on chronic diastolic heart failure with preserved ejection fraction Current Visit: Yes Status: Acute Plan: HE IS ON LASIX DRIP KCL PO I CHANGED LOSARTAN TO ENTRESTO CHANGED TOPROL TO COREG CONTINUE AMIODARONE FOR HISTORY H O A FIB. DR FLYNN HAS BEEN MANAGING. I WILL STOP LASIX DRIP NOW BP IS LOW NORMAL HE SEEMS EUVOLEMIC NOW. I ASKED DAUGHTER TO TAKE HIM WITH HER SHE WANTS TO DO. HE DOES NOT WANT TO GO FROM HERE. WITH PROPER LOW SALT DIET AND MEDS ON TIME, HE WILL DO BETTER. (2) Coronary artery disease due to type 2 diabetes mellitus Current Visit: Yes Status: Chronic (3) Hypokalemia Current Visit: Yes Status: Acute Plan: REPLACE WITH K DAILY LAB.
[2025-03-23 05:10] LABS: Absolute Basophils 0.1 K/uL (0-0.5); Absolute Eosinophils 0.2 K/uL (0-0.5); Absolute Lymphocytes (CBC) 1.1 K/uL (0.7-4.9); Absolute Monocytes 1.3 K/uL (0.1-1.3); Absolute Neutrophil 7.1 K/uL (1.8-8.0); Basophils % 0.8 % (0-1.3); Hematocrit 40.9 % (39.6-49.0); Hemoglobin 13.8 g/dL (13.6-17.9); Lymphocytes % 11.2 % (15.3-44.8); MCH 27.5 pg (27.0-35.0); MCHC 33.8 g/dL (32.0-36.0); MCV 81.4 fL (80-100); MPV 7.6 fL (7.6-11.3); Monocytes % 13.7 % (3.3-12.3); Neutrophils % 72.3 % (41.7-73.7); Nucleated Red Blood Cells % 0.1 % (0-0); Platelets 252 thou/uL (152-406); RBC Red Blood Cell Count 5.03 M/uL (4.33-5.43); Red Cell Distribution Width 16.7 % (12.1-15.2)
[2025-03-23 05:14] LABS: Anion Gap 8.4 mEq/L (5.0-15.0); Magnesium 2.3 mg/dL (1.6-2.4); Potassium 3.4 mEq/L (3.5-5.1)
[2025-03-23] MEDS: POTASSIUM CL SA 10 MEQ TAB PO ONE (08:29)
[2025-03-23 09:36] VITALS: BP 123/59; TEMP 97.9
--- NOTE | 2025-03-23 13:01 | P.DS ---
Admission Date: 03/20/25 Discharge Date: 03/23/25 Disposition: ROUTINE DISCHARGE Discharge Condition: FAIR Reason for Admission: BREATHES BETTER - Problems (1) Acute on chronic diastolic heart failure with preserved ejection fraction Status: Acute (2) Coronary artery disease due to type 2 diabetes mellitus Status: Chronic (3) Hypokalemia Status: Acute Hospital Course: TAMIKO CAME WITH CHF, DIASTOLIC ACUTE ON CHRONIC. HE EATS SALTY FOOD. I ASKED FOR DAUGHTER TO CONTROL THE FOOD. HE DOES NOT WANT TO GO WITH HER BUT HE WILL. LASIX DRIP HELPED REDUCE FLUID BY 20 LBS. HE HAS NO SIGNS OF CHF NOW. I ADDED ENTRESTO AND COREG, STOPPED LOSARTAN AND METOPROLOL. HE IS STABLE TO GO HOME. FAMILY WANTS A NEW DISHROOM ATTENDANT IN [place]. THEY WILL ARRANGE FOR IT. Vital Signs/Physical Exam: Temp Pulse Resp BP Pulse Ox 97.9 F 66 22 H 123/59 L 90 L 03/23/25 08:00 03/23/25 08:28 03/23/25 08:00 03/23/25 08:28 03/23/25 08:00 Laboratory Data at Discharge: WBC 9.80 thou/uL (4.3-10.9) 03/23/25 04:26 Hgb 13.8 g/dL (13.6-17.9) 03/23/25 04:26 Hct 40.9 % (39.6-49.0) 03/23/25 04:26 Plt Count 252 thou/uL (152-406) 03/23/25 04:26 PT 12.2 SECONDS (10-13.0) 03/20/25 13:50 INR 1.07 03/20/25 13:50 APTT 32.5 SECONDS (27.2-37.4) 03/20/25 13:50 Sodium 140 mEq/L (136-145) 03/23/25 04:26 Potassium 3.4 mEq/L (3.5-5.1) L D 03/23/25 04:26 BUN 28 mg/dL (7-18) H 03/23/25 04:26 Creatinine 1.43 mg/dL (0.70-1.30) H 03/23/25 04:26 Glucose 106 mg/dL (74-106) 03/23/25 04:26 Phosphorus 3.2 mg/dL (2.5-4.9) 03/20/25 13:50 Magnesium 2.3 mg/dL (1.6-2.4) 03/23/25 04: Total Bilirubin 0.9 mg/dL (0.2-1.0) 03/20/25 13:50 AST 24 U/L (15-37) 03/20/25 13:50 ALT 26 U/L (16-61) 03/20/25 13:50 Alkaline Phosphatase 130 U/L (45-117) H 03/20/25 13:50 Home Medications: Atorvastatin Calcium [Lipitor*] 40 mg PO BEDTIME 09/06/23 Furosemide [Lasix] 20 mg PO BID 09/06/23 Insulin Aspart [Novolog Flexpen] 10 unit SQ TID 09/06/23 Levothyroxine Sodium 150 mcg PO DAILY 09/06/23 Potassium Chloride 10 meq PO DAILY 09/06/23 Aspirin 81 mg PO BEDTIME 04/10/24 [place] Cinnamon 6,000 mg PO BEDTIME 04/10/24 Insulin Glargine-Yfgn 40 unit SQ BID 04/10/24 Magnesium Oxide [Mag 0X*] 400 mg PO DAILY 04/10/24 Montelukast Sodium 10 mg PO BEDTIME 04/10/24 Tamsulosin [Flomax*] 0.4 mg PO BEDTIME 04/10/24 Amiodarone HCl [Cordarone*] 200 mg PO BEDTIME 03/20/25 Insulin Aspart [Novolog Flexpen] 10 units SQ TID 03/20/25 Isosorbide Mononitrate [Isosorbide Mononitrate ER] 30 mg PO DAILY 03/20/25 Memantine HCl 5 mg PO BID 03/20/25 Sitagliptin [Zituvio] 100 03/21/25 Sacubitril/Valsartan [Entresto 24 mg-26 mg Tablet] 1 tab PO BID #60 tab 03/22/25 carvediloL [Coreg*] 6.25 mg PO BID #180 tab 03/22/25 New Medications: carvediloL [Coreg*] 6.25 mg PO BID #180 tab Sacubitril/Valsartan [Entresto 24 mg-26 mg Tablet] 1 tab PO BID #60 tab Followup: René Pacheco MD [ACTIVE - CAN ADMIT] - 1-2 Weeks
== END 2025-03-23 09:51 | disposition home or self-care (01) | DRG 291 ==
LOC: 2ND 12:49
PROVIDERS: ADMIT Internal Medicine; ATTEND Internal Medicine
DX: I11.0 Hypertensive heart disease with heart failure (principal); I50.33 Acute on chronic diastolic (congestive) heart failure; E87.6 Hypokalemia; I48.91 Unspecified atrial fibrillation; E11.42 Type 2 diabetes mellitus with diabetic polyneuropathy; I25.10 Atherosclerotic heart disease of native coronary artery without angina pectoris; Z88.5 Allergy status to narcotic agent; Z79.4 Long term (current) use of insulin; Z79.890 Hormone replacement therapy; Z79.899 Other long term (current) drug therapy
CPT/HCPCS: 36415; 71275; 74177; 80048; 80076; 81001; 82043; 82306; 82570; 82607; 82947; 83036; 83735; 83880; 84100; 84439; 84443; 85025; 85610; 85730; 87086; 87088; 94640; J1650; J1815; J7614; J7644; Q9967